=== PATIENT | male | born 1945 | race Caucasian/White ===

== ENCOUNTER 2018-01-14 10:59 | Emergency (ER) | payer OTHER, BC ==
[~2018-01-14] VITALS: Ht 177.8 cm; Wt 86.2 kg
--- NOTE | ~2018-01-14 | EKG ---
[address] [place] [address] ELECTROCARDIOGRAM REPORT Name: KEVIN STERN Room #: DEP Jessica#: [id number] Admission: 01/14/18 Attend Phys: Discharge: 01/14/18 Date of : 47 Report #: [id number] THIS REPORT FOR: //name// [facility] ED Test Date: 2018-01-14 Test Time: 11:02:09 Pat Name: KEVIN STERN Department: Room: Gender: M Fire Crew Worker: Heather ROLDAN : 1945 Requested By: Madi Lan Order Number: [id number] MD: Jose Dailey Measurements Intervals [place] Rate: 52 P: 70 [place]: 161 QRS: -21 QRSD: 174 T: 115 QT: 521 QTc: 485 Interpretive Statements Sinus rhythm Left bundle branch block Compared to ECG 12/18/2013 03:10:48 Sinus bradycardia no longer present Electronically Signed On 01-14-2018 21:18:35 CDT by Jose Dailey [email or web address] <ELECTRONICALLY SIGNED> By: Jose Dailey MD 01/14/188 D: 061101 01 Jose Dailey MD /TIP
[~2018-01-14 10:59] MED LIST: CARVEDILOL12.5 MG PO; LIPITOR80 MG PO; NORCO 5-325 TA1 EACH PO; PLAVIX 75 MG TA75 M1 PO; PRINIVIL10 MG PO; ZOCOR40 MG
[2018-01-14 12:17] LABS: ABSOLUTE NEUTROPHILS 6.7 thou/uL (1.4-8.2); BASOPHILS 1.2 % (0.0-2.0); EOSINOPHILS 2.4 % (0.0-3.0); HEMATOCRIT 46.2 % (42.0-52.0); HEMOGLOBIN 16.6 gm/dL (14.0-18.0); LYMPHOCYTES 24.2 % (24.0-44.0); MCH 32.6 pg (26.0-34.0); MCHC 35.9 g/dL (28.0-37.0); MONOCYTES 8.9 % (1.0-8.0); PLATELET COUNT 261 thou/uL (150-400); POLYS 63.3 % (36.0-66.0); RBC 5.08 mil/uL (4.50-6.00); RDW 13.2 % (10.5-14.5); WBC 10.6 thou/uL (4.0-11.0)
[2018-01-14 12:28] LABS: ANION GAP 5 mmol/L (7-16); BUN 14 mg/dL (7-18); CALCIUM 10.4 mg/dL (8.5-10.1); CHLORIDE 102 mmol/L (98-107); CO2 28 mmol/L (21-32); CREATININE 0.8 mg/dL (0.7-1.3); GLUCOSE 104 mg/dL (74-106); POTASSIUM 4.8 mmol/L (3.5-5.1); SODIUM 135 mmol/L (136-145)
[2018-01-14 12:37] LABS: TROPONIN-I <0.06 ng/mL (<0.06)
[2018-01-14] MEDS ORDERED: FLONASE 0.05%50 MCG NASAL (12:53)
[2018-01-14] MEDS ORDERED: AUGMENTIN 875-1 EACH PO (12:53)
== END 2018-01-14 13:23 | disposition home or self-care (01) ==
LOC: ER 10:59
PROVIDERS: Physician Assistant
DX: J32.9 Chronic sinusitis, unspecified (principal); I16.0 Hypertensive urgency; I10 Essential (primary) hypertension; E78.00 Pure hypercholesterolemia, unspecified; Z95.811 Presence of heart assist device

== ENCOUNTER 2018-02-24 11:11 | Emergency (ER) | payer OTHER, BC ==
[~2018-02-24] VITALS: Ht 177.8 cm; Wt 86.2 kg
--- NOTE | ~2018-02-24 | EKG ---
[address] [place] [address] ELECTROCARDIOGRAM REPORT Name: LEENAKRAIGKEVIN D Room #: DEP Jessica#: [id number] Admission: 02/24/18 Attend Phys: Discharge: 02/24/18 Date of : 47 Report #: [id number] THIS REPORT FOR: //name// [facility] ED Test Date: 2018-02-24 Test Time: 11:43:05 Pat Name: KEVIN STERN Department: Room: Gender: Field Research Assistant: Heather ROLDAN : 1945 Requested By: Madi Lan Order Number: [id number] MD: Ernesto Barajas Measurements Intervals [place] Rate: 48 P: 69 [place]: 165 QRS: -12 QRSD: 170 T: 118 QT: 487 QTc: 436 Interpretive Statements Sinus bradycardia Left bundle branch block Compared to ECG 01/14/2018 11:02:09 Sinus rhythm no longer present Electronically Signed On 02-25-2018 11:02:13 CDT by Ernesto Barajas [email or web address] <ELECTRONICALLY SIGNED> By: Ernesto Barajas MD 02/25/18 1102 1143 1143 MD MOLLY Cheek
[~2018-02-24 11:11] MED LIST changes: +AUGMENTIN 875-1 EACH PO; +FLONASE 0.05%50 MCG NASAL
[2018-02-24 11:52] LABS: ABSOLUTE NEUTROPHILS 6.1 thou/uL (1.4-8.2); BASOPHILS 1.1 % (0.0-2.0); EOSINOPHILS 2.3 % (0.0-3.0); HEMATOCRIT 42.9 % (42.0-52.0); HEMOGLOBIN 14.9 gm/dL (14.0-18.0); LYMPHOCYTES 24.9 % (24.0-44.0); MCH 31.3 pg (26.0-34.0); MCHC 34.8 g/dL (28.0-37.0); MCV 89.9 fL (80.0-100.0); MONOCYTES 9.6 % (1.0-8.0); PLATELET COUNT 246 thou/uL (150-400); POLYS 62.1 % (36.0-66.0); RBC 4.77 mil/uL (4.50-6.00); RDW 13.1 % (10.5-14.5); WBC 9.9 thou/uL (4.0-11.0)
[2018-02-24 11:59] LABS: ANION GAP 7 mmol/L (7-16); BUN 12 mg/dL (7-18); CALCIUM 10.2 mg/dL (8.5-10.1); CHLORIDE 103 mmol/L (98-107); CO2 24 mmol/L (21-32); CREATININE 0.9 mg/dL (0.7-1.3); GLUCOSE 112 mg/dL (74-106); POTASSIUM 4.4 mmol/L (3.5-5.1); SODIUM 134 mmol/L (136-145)
[2018-02-24 12:07] LABS: TROPONIN-I <0.06 ng/mL (<0.06)
[2018-02-24 12:45] LABS: URINE BILIRUBIN NEGATIVE (Negative); URINE BLOOD NEGATIVE (Negative); URINE CLARITY CLEAR; URINE COLOR YELLOW; URINE GLUCOSE-RANDOM* NEGATIVE (Negative); URINE KETONES NEGATIVE (Negative); URINE LEUKOCYTES-REFLEX NEGATIVE (Negative); URINE NITRITE-REFLEX NEGATIVE (Negative); URINE PROTEIN (DIPSTICK) NEGATIVE (Negative); URINE SPECIFIC GRAVITY <= 1.005 (1.005-1.035); URINE UROBILINOGEN 0.2 E.U./dl (0.2-1.0)
[2018-02-24] MEDS ORDERED: ANTIVERT25 MG PO (13:04)
== END 2018-02-24 13:42 | disposition home or self-care (01) ==
LOC: ER 11:11
PROVIDERS: Physician Assistant
DX: R42 Dizziness and giddiness (principal); F17.210 Nicotine dependence, cigarettes, uncomplicated; I10 Essential (primary) hypertension; E78.00 Pure hypercholesterolemia, unspecified; Z88.6 Allergy status to analgesic agent; Z95.5 Presence of coronary angioplasty implant and graft

== ENCOUNTER 2018-05-27 12:56 | Emergency (ER) | payer OTHER, BC ==
[~2018-05-27] VITALS: Ht 177.8 cm; Wt 87.5 kg
--- NOTE | ~2018-05-27 | EKG ---
[address] [place] [address] ELECTROCARDIOGRAM REPORT Name: LEENAKEVIN D Room #: DEP Jessica#: [id number] Admission: 05/27/18 Attend Phys: Discharge: 05/27/18 Date of : 47 Report #: [id number] THIS REPORT FOR: //name// [facility] ED Test Date: 2018-05-27 Test Time: 13:16:49 Pat Name: KEVIN STERN Department: Room: Gender: Lathe Set Up Person: aj : 1945 Requested By: Shiva Foss Order Number: [id number] MD: Ronnie Espinoza Measurements Intervals [place] Rate: 54 P: 51 [place]: 168 QRS: -22 QRSD: 176 T: 110 QT: 489 QTc: 464 Interpretive Statements Sinus rhythm Left bundle branch block Compared to ECG 02/24/2018 11:43:05 No significant change was found Electronically Signed On 05-28-2018 8:05:49 ARTIFICIAL CANDY MAKER by Ronnie Espinoza [email or web address] <ELECTRONICALLY SIGNED> By: Ronnie Espinoza MD, [facility] 05/28/18 0805 1316 1316 Ronnie Espinoza MD, FACC /EPI
[~2018-05-27 12:56] MED LIST changes: +ANTIVERT25 MG PO
[2018-05-27 13:42] LABS: ABSOLUTE NEUTROPHILS 7.7 thou/uL (1.4-8.2); EOSINOPHILS 2.2 % (0.0-3.0); HEMATOCRIT 43.3 % (42.0-52.0); HEMOGLOBIN 15.3 gm/dL (14.0-18.0); LYMPHOCYTES 18.6 % (24.0-44.0); MCH 31.7 pg (26.0-34.0); MCHC 35.5 g/dL (28.0-37.0); MCV 89.3 fL (80.0-100.0); MONOCYTES 8.9 % (1.0-8.0); PLATELET COUNT 230 thou/uL (150-400); POLYS 69.3 % (36.0-66.0); RBC 4.84 mil/uL (4.50-6.00); RDW 13.2 % (10.5-14.5); WBC 11.1 thou/uL (4.0-11.0)
[2018-05-27 13:50] LABS: ANION GAP 9 mmol/L (7-16); BUN 15 mg/dL (7-18); CHLORIDE 103 mmol/L (98-107); CO2 26 mmol/L (21-32); CREATININE 0.9 mg/dL (0.7-1.3); GLUCOSE 113 mg/dL (74-106); POTASSIUM 4.4 mmol/L (3.5-5.1); SODIUM 138 mmol/L (136-145)
[2018-05-27 13:59] LABS: TROPONIN-I <0.06 ng/mL (<0.06)
[2018-05-27 14:41] VITALS: BP 163/68
== END 2018-05-27 14:45 | disposition home or self-care (01) ==
LOC: ER 12:56
PROVIDERS: Emergency Medicine
DX: I20.8 Other forms of angina pectoris (principal); R04.0 Epistaxis; F17.210 Nicotine dependence, cigarettes, uncomplicated; I10 Essential (primary) hypertension; E78.00 Pure hypercholesterolemia, unspecified; Z88.6 Allergy status to analgesic agent; Z95.5 Presence of coronary angioplasty implant and graft

== ENCOUNTER → 2018-09-18 | Outpatient (CLI) | payer OTHER, BC | LOC: CAT 08:32 | DX: Z01.812 Encounter for preprocedural laboratory examination (principal); I71.4 Abdominal aortic aneurysm, without rupture; N20.0 Calculus of kidney ==

== ENCOUNTER → 2018-09-26 | Outpatient (CLI) | payer OTHER, BC ==
[~2018-09-26] VITALS: Ht 177.8 cm; Wt 88.5 kg
[~2018-09-26] MED LIST changes: +CRESTOR20 MG PO; +IMDUR 30 MG TAB30 M1 PO
[2018-09-26 10:00] LABS: HEMATOCRIT 43.5 % (42.0-52.0); MCHC 34.4 g/dL (28.0-37.0); MCV 90.1 fL (80.0-100.0); RBC 4.83 mil/uL (4.50-6.00); RDW 13.2 % (10.5-14.5); WBC 9.6 thou/uL (4.0-11.0)
[2018-09-26 10:11] LABS: CALCIUM 10.4 mg/dL (8.5-10.1); CREATININE 0.9 mg/dL (0.7-1.3); POTASSIUM 4.4 mmol/L (3.5-5.1)
[2018-09-26 10:19] VITALS: BP 183/72
--- NOTE | 2018-09-26 12:23 | EKG ---
[address] [address] [facility] [place] [address] ELECTROCARDIOGRAM REPORT Name: ANA STERN Room #: REG CLGilbert Lopez#: [id number] ������������������ Admission: 09/26/18 ������������������ Attend Phys: Peter Stewart Discharge: ������������������ Date of : 47 Report #: [id number] ����������������������������������������������������������������� [id number] THIS REPORT FOR: //name// [facility] Test Date: 2018-09-26 Test Time: 09:44:45 Pat Name: ANA STERN Department: Room: Gender: Driver Wheelchair: Amanda PROCTOR : 1945 Requested By: Peter Stewart Order Number: [id number] MD: Peter Stewart Measurements Intervals [place] Rate: 43 P: 60 [place]: 165 QRS: -5 QRSD: 178 T: 121 QT: 554 QTc: 469 Interpretive Statements Sinus bradycardia left atrial enlargement Left bundle branch block Compared to ECG 05/27/2018 13:16:49 No significant changes Electronically Signed On 09-26-2018 12:22:46 CHEMICAL EDUCATOR by Peter Stewart [email or web address] ��������������������������������������������� <ELECTRONICALLY SIGNED> ���������������������������������������� By: Peter Stewart MD ��������������������������������������������� 09/26/18 1222 3 Peter Stewart MD /EPI
--- NOTE | 2018-09-28 17:47 | CATHLAB ---
[facility] [address] [place] [address] INVASIVE PROCEDURE REPORT Name: ANA STERN Room #: REG [facility] JOPLINDaltonDalton#: [id number] ������������� Admission: 09/26/18 ������������� Attend Phys: Peter Alberts Discharge: ��� ������������� ��� Date of : 47 Date of Service: 09/28/18 1747 �� Report #: [id number] �������� ��������������������������������������������[id number] THIS REPORT FOR: //name// APPROVED REPORT Study performed: 09/26/2018 14:12:04 Patient Details Patient Status: Out-Patient Room #: The patient is a 73 year-old male Event Personnel Peter Stewart Specialty Cook, Sis Shay RTR, STEVEDORE DOCK Monitor, Lupis Ramsay RN RN, Stephanie Perez RN RN, Lucas Ramsey, Isak De Oliveira RN Procedures Performed Art Access - R femoral artery* Left Heart Cath Coronaries, Bypass Grafts [id number] LHCCORCABG 28820 Initial Mod Sed Same Phys/QHP Gr5y 423156 80232 Mod Sed Same Phys/QHP Ea 456706 Hemostasis with Manual pressure, supervision of conscious sedation Indication Chest pain Risk Factors Dysplipidemia , Peripheral Vascular Disease, Coronary Artery Disease Procedure Narrative The Right Groin^ was infiltrated with 1% Lidocaine subcutaneous anesthesia. A PINNACLE 4FR Sheath #[id number] sheath was inserted into the RFA^. Coronary angiography was performed using coronary diagnostic catheters. The right coronary system was accessed and visualized with a JR4 catheter. The left coronary system was accessed and visualized with a JL4 catheter. The left ventricle was accessed and visualized with a angled pigtail catheter. Left ventricular/Aortic Valve gradient assessed via catheter pullback. Hemostasis was obtained with manual pressure following sheath removal without any complications. The patient tolerated the procedure well and there were no complications associated with the procedure. There was no hematoma. Intraoperative Conscious Sedation Sedation start time: 14:48 Case end Time: [facility] [place] [address] INVASIVE PROCEDURE REPORT Name: ANA STERN Room #: REG [facility]#: [id number] ������������� Admission: 09/26/18 ������������� Attend Phys: Peter Alberts Discharge: ��� ������������� ��� Date of : 47 Date of Service: 09/28/18 1747 �� Report #: [id number] �������� ��������������������������������������������[id number] 15:30 Versed 3 mg Fluoro Time: 6.03 minutes Dose: DAP 5177.70 cGycm2 754 mGy Contrast Type and Amount: Omnipaque 110 ml Coronary Angiography The patient's coronary anatomy is right dominant. Barrow Artery Percent Stenosis Grafts (Complete if Previous CABG=Yes: Percent Stenosis) Left Main: % Prox LAD: % Mid/Distal LAD: 0 % Circumflex: 0 % RCA: 0 % Ramus: %NATH to the LAD is widely patent without significant lesions or anastomotic narrowing. Saphenous vein graft to the left circumflex marginal branch is widely patent without flow limitations. Saphenous vein graft to the right coronary artery is patent with luminal irregularities. Diagnostic Cath Left Main Small to moderate caliber vessel of normal origin which rapidly tapers in the distal portion to 99%. It originally gave rise to left anterior descending and left circumflex vessel LAD Small-caliber vessel totally occluded at the ostium of the left main but fills retrograde via a patent left internal mammary graft. There is luminal irregularities present but no high-grade lesions noted antegrade or retrograde from the insertion of the left internal mammary Diagonal 1 Small-caliber diffusely diseased vessel Circumflex Small-caliber vessel which has a 99% ostial lesion. It continues and reconstitutes itself with KVNG 2 flow giving rise to one short OM that occludes in the proximal third and terminates as a posterior wall marginal branch. OM1 Small-caliber vessel filling via his reverse saphenous vein graft. Is feeling high-grade stenosis. Does provide collateral flow to the distal right circulation Right Coronary Small-caliber vessel normal origin and is completely occluded proximally. The mid and distal RCA fills via a patent saphenous vein graft. There is only luminal irregularities present. R PDA Small-caliber vessel without high-grade lesions present. Left Ventriculography Left Ventriculography was not performed. [address] [address] INVASIVE PROCEDURE REPORT Name: NAA STERN Room #: REG QUINTIN Lopez#: [id number] ������������� Admission: 09/26/18 ������������� Attend Phys: Peter Alberts Discharge: ��� ������������� ��� Date of : 47 Date of Service: 09/28/18 1747 �� Report #: [id number] �������� ��������������������������������������������[id number] Hemodynamics The aortic pressure is 203/102 mmHg with a mean of 130 mmHg. The left ventricular pressure is 194/17 mmHg with a mean of mmHg. The left ventricular end diastolic pressure is 31 mmHg. Conclusion 1. Coronary disease status post aortocoronary bypass grafting with patent grafts and progression of [place] left circumflex disease 2. Abnormal hemodynamics with elevated liver ventricular end-diastolic pressures Recommendations Cardiac Risk Reduction Program Medical Therapy ��������������������������������������������� <ELECTRONICALLY SIGNED> ���������������������������������������� By: Peter Stewart MD ��������������������������������������������� 09/28/18 1747 174 174 Peter Stewart MD /INF
== END | disposition home or self-care (01) ==
LOC: CATH 09:26
PROVIDERS: Internal Medicine
DX: I25.708 Atherosclerosis of coronary artery bypass graft(s), unspecified, with other forms of angina pectoris (principal); I35.0 Nonrheumatic aortic (valve) stenosis; I73.9 Peripheral vascular disease, unspecified; I71.4 Abdominal aortic aneurysm, without rupture; F41.9 Anxiety disorder, unspecified; E78.5 Hyperlipidemia, unspecified; Z98.890 Other specified postprocedural states; Z82.49 Family history of ischemic heart disease and other diseases of the circulatory system; I21.3 ST elevation (STEMI) myocardial infarction of unspecified site; R00.1 Bradycardia, unspecified; F17.210 Nicotine dependence, cigarettes, uncomplicated

== ENCOUNTER → 2019-12-02 | Outpatient (CLI) | payer OTHER, BC | LOC: SJCVC 09:22 | PROVIDERS: ATTEND Internal Medicine | DX: I44.7 Left bundle-branch block, unspecified (principal); R00.1 Bradycardia, unspecified; R94.31 Abnormal electrocardiogram [ECG] [EKG]; I25.119 Atherosclerotic heart disease of native coronary artery with unspecified angina pectoris; I10 Essential (primary) hypertension; E78.5 Hyperlipidemia, unspecified; F17.210 Nicotine dependence, cigarettes, uncomplicated; Z79.899 Other long term (current) drug therapy ==

== ENCOUNTER → 2020-04-27 | Outpatient (CLI) | payer OTHER, BC | LOC: RAD 09:37 | PROVIDERS: ATTEND Nurse Practitioner | DX: M16.0 Bilateral primary osteoarthritis of hip (principal); M25.78 Osteophyte, vertebrae; M25.751 Osteophyte, right hip; M54.40 Lumbago with sciatica, unspecified side; M47.816 Spondylosis without myelopathy or radiculopathy, lumbar region ==

== ENCOUNTER 2020-06-14 13:58 | Emergency (ER) | payer OTHER, BC ==
[~2020-06-14] VITALS: Ht 177.8 cm; Wt 86.2 kg
[2020-06-14 14:59] LABS: HEMATOCRIT 43.2 % (42.0-52.0); HEMOGLOBIN 14.5 gm/dL (14.0-18.0); MCH 30.5 pg (26.0-34.0); MCHC 33.7 g/dL (28.0-37.0); MCV 90.7 fL (80.0-100.0); PLATELET COUNT 247 thou/uL (150-400); RBC 4.77 mil/uL (4.50-6.00); RDW 13.3 % (10.5-14.5); WBC 8.6 thou/uL (4.0-11.0)
[2020-06-14 15:05] LABS: ANION GAP 4 mmol/L (7-16); BUN 15 mg/dL (7-18); CALCIUM 10.4 mg/dL (8.5-10.1); CHLORIDE 102 mmol/L (98-107); CO2 29 mmol/L (21-32); GLUCOSE 83 mg/dL (74-106); POTASSIUM 4.2 mmol/L (3.5-5.1); SODIUM 135 mmol/L (136-145)
[2020-06-14] MEDS ORDERED: LISINOPRIL20 MG PO (15:08)
[2020-06-14] MEDS ORDERED: NORVASC5 MG PO (15:09)
[2020-06-14] MEDS ORDERED: NITROSTAT0.4 MG SUBLING (15:09)
[2020-06-14] MEDS ORDERED: TRAZODONE HCL50 MG PO (15:09)
[2020-06-14] MEDS ORDERED: LISINOPRIL40 MG PO (15:09)
[2020-06-14 15:14] LABS: ALBUMIN 3.8 g/dL (3.4-5.0); SGOT 20 U/L (15-37); SGPT 18 U/L (30-65); TOTAL BILIRUBIN 0.5 mg/dL (0.2-1.0); TOTAL PROTEIN 7.9 g/dL (6.4-8.2); TROPONIN-I <0.06 ng/mL (<0.06)
[2020-06-14 15:24] LABS: ABSOLUTE NEUTROPHILS 5.2 thou/uL (1.4-8.2)
[2020-06-14 17:01] VITALS: BP 138/60
--- NOTE | 2020-06-15 09:03 | EKG ---
[facility] [place] [address] [place] [address] ELECTROCARDIOGRAM REPORT Name: ANA STERN Room #: DEP [facility] [id number] Admission: 06/14/20 Attend Phys: Discharge: 06/14/20 Date of : 47 Report #: [id number] THIS REPORT FOR: cc: Martha Rosas DNP, Mary E. DNP Santiago, Patrick MD [facility] THIS REPORT FOR: //name// [facility] ED Test Date: 2020-06-14 Test Time: 14:22:30 Pat Name: ANA STERN Department: Room: Gender: Mathematics Improvement Teacher: [facility] : 1945 Requested By: Lupis Pandya Order Number: [id number] MD: Romeo Spviey Measurements Intervals [place] Rate: 46 P: 64 [place]: 175 QRS: -2 QRSD: 182 T: 137 QT: 533 QTc: 467 Interpretive Statements Sinus bradycardia Ventricular premature complex Left bundle branch block Compared to ECG 09/26/2018 09:44:45 Ventricular premature complex(es) now present Atrial abnormality no longer present Electronically Signed On 06-15-2020 9:03:38 AIR TOOL OPERATOR by Romeo Spivey [email or web address] <ELECTRONICALLY SIGNED> By: Romeo Spivey MD, FACC 06/15/20 0903 142 142 Romeo Spivey MD, [facility] /EPI
== END 2020-06-14 17:15 | disposition home or self-care (01) ==
LOC: ER 13:58
PROVIDERS: Emergency Medicine
DX: R07.89 Other chest pain (principal); I25.10 Atherosclerotic heart disease of native coronary artery without angina pectoris; E78.5 Hyperlipidemia, unspecified; F17.210 Nicotine dependence, cigarettes, uncomplicated; Z95.1 Presence of aortocoronary bypass graft; Z79.899 Other long term (current) drug therapy; Z88.6 Allergy status to analgesic agent

== ENCOUNTER → 2020-12-03 | Outpatient (CLI) | payer OTHER, BC ==
[~2020-12-03] MED LIST changes: +LISINOPRIL20 MG PO; +LISINOPRIL40 MG PO; +NITROSTAT0.4 MG SUBLING; +NORVASC5 MG PO; +TRAZODONE HCL50 MG PO
== END ==
LOC: SJCVC 09:26
PROVIDERS: ATTEND Internal Medicine
DX: R94.31 Abnormal electrocardiogram [ECG] [EKG] (principal); I44.7 Left bundle-branch block, unspecified; R00.1 Bradycardia, unspecified; I25.10 Atherosclerotic heart disease of native coronary artery without angina pectoris; I10 Essential (primary) hypertension; E78.5 Hyperlipidemia, unspecified; M19.90 Unspecified osteoarthritis, unspecified site; F41.9 Anxiety disorder, unspecified; F17.210 Nicotine dependence, cigarettes, uncomplicated; Z95.1 Presence of aortocoronary bypass graft; Z88.6 Allergy status to analgesic agent; Z79.899 Other long term (current) drug therapy

== ENCOUNTER 2021-03-19 10:10 | Emergency (ER) | payer OTHER, BC ==
[~2021-03-19] VITALS: Ht 177.8 cm; Wt 74.8 kg
[2021-03-19 10:13] VITALS: BP 90/44
== END 2021-03-19 11:29 | disposition home or self-care (01) ==
LOC: ER 10:10
DX: S41.111A Laceration without foreign body of right upper arm, initial encounter (principal); I25.10 Atherosclerotic heart disease of native coronary artery without angina pectoris; I11.0 Hypertensive heart disease with heart failure; I50.9 Heart failure, unspecified; F41.9 Anxiety disorder, unspecified; E78.5 Hyperlipidemia, unspecified; F17.210 Nicotine dependence, cigarettes, uncomplicated; Z79.899 Other long term (current) drug therapy; Z88.6 Allergy status to analgesic agent; W07.XXXA Fall from chair, initial encounter; Y93.89 Activity, other specified; Y92.89 Other specified places as the place of occurrence of the external cause; Y99.8 Other external cause status

== ENCOUNTER → 2021-06-07 | Outpatient (CLI) | payer OTHER, BC | LOC: SJCVC 08:48 | PROVIDERS: ATTEND Internal Medicine | DX: I44.7 Left bundle-branch block, unspecified (principal); R94.31 Abnormal electrocardiogram [ECG] [EKG]; I25.10 Atherosclerotic heart disease of native coronary artery without angina pectoris; I10 Essential (primary) hypertension; E78.5 Hyperlipidemia, unspecified; I71.4 Abdominal aortic aneurysm, without rupture; Z88.6 Allergy status to analgesic agent; Z79.899 Other long term (current) drug therapy; Z82.49 Family history of ischemic heart disease and other diseases of the circulatory system; F17.210 Nicotine dependence, cigarettes, uncomplicated ==